=== PATIENT | female | born 1955 | race Asian ===

== ENCOUNTER 2016-06-17 16:21 | Emergency (ER) | payer OTHER ==
[~2016-06-17] VITALS: Ht 152.4 cm; Wt 55.2 kg
[2016-06-17 16:22] VITALS: BP 119/68
== END 2016-06-17 17:31 | disposition home or self-care (01) ==
LOC: ED 17:30
DX: L50.0 Allergic urticaria (principal); T78.40XA Allergy, unspecified, initial encounter; X58.XXXA Exposure to other specified factors, initial encounter
CPT/HCPCS: 99283; Q0177

== ENCOUNTER 2016-08-26 02:52 | Emergency (ER) | payer OTHER ==
[~2016-08-26] VITALS: Ht 152.4 cm; Wt 54.2 kg
[2016-08-26 02:56] VITALS: BP 100/66
[2016-08-26] MEDS ORDERED: AZIT250T PO (03:01)
[2016-08-26] MEDS ORDERED: DEXAMETHASONE 4 MG/ML, 1ML ONE (03:51)
[2016-08-26] MEDS ORDERED: DEXAMETHASONE 4 MG/ML, 1ML PO ONE (04:00)
== END 2016-08-26 04:39 | disposition home or self-care (01) ==
LOC: ED 04:33
DX: J15.9 Unspecified bacterial pneumonia (principal); J02.8 Acute pharyngitis due to other specified organisms; H10.023 Other mucopurulent conjunctivitis, bilateral
CPT/HCPCS: 71020; 99284; J1100

== ENCOUNTER 2019-05-04 12:34 | Emergency (ER) | payer MEDICAID, OTHER ==
[~2019-05-04] VITALS: Ht 152.4 cm; Wt 47.4 kg
[~2019-05-04 12:34] MED LIST: AZIT250T PO
[2019-05-04 13:07] LABS: BASOPHILS # (AUTO) 0.03 x10^3/uL (0-0.1); BASOPHILS % (AUTO) 0 % (0-1); EOSINOPHILS # (AUTO) 0.17 x10^3/uL (0-0.4); EOSINOPHILS % (AUTO) 2 % (1-7); LYMPHOCYTES % (AUTO) 13 % (22-44); MD NO; MEAN CORPUSCULAR HEMOGLOBIN 32.4 pg (27.0-34.8); MEAN CORPUSCULAR HGB CONC 33.6 g/dL (32.4-35.8); MEAN CORPUSCULAR VOLUME 96.5 fL (80-100); MEAN PLATELET VOLUME 5.7 fL (7.4-10.4); MONOCYTES # (AUTO) 0.47 x10^3/uL (0.2-0.8); MONOCYTES % (AUTO) 5 % (2-9); NEUTROPHILS # (AUTO) 7.78 x10^3/uL (1.8-6.8); NEUTROPHILS % (AUTO) 81 % (42-75); PLATELET COUNT 263 x10^3/uL (130-400); RED BLOOD COUNT 3.39 x10^6/uL (3.82-5.3); RED CELL DISTRIBUTION WIDTH 13.2 % (9.6-15.2)
[2019-05-04 13:19] LABS: ALBUMIN 3.4 g/dL (3.4-5.0); ANION GAP 6 mmol/L (5-15); CALCIUM 8.8 mg/dL (8.5-10.1); CHLORIDE 108 mmol/L (98-107)
[2019-05-04 13:25] LABS: ALANINE AMINOTRANSFERASE 15 U/L (12-78); BILIRUBIN,TOTAL 0.3 mg/dL (0.2-1.0); CREATININE 2.38 mg/dL (0.55-1.02); TOTAL PROTEIN 7.9 g/dL (6.4-8.2); TROPONIN I < 0.015 ng/mL (0.000-0.045)
[2019-05-04 13:26] LABS: ALKALINE PHOSPHATASE 66 U/L (45-117)
[2019-05-04 15:36] VITALS: BP 128/78
--- NOTE | 2019-05-04 18:44 | NUR ---
called pt to room from lobby, not in lobby
--- NOTE | 2019-05-04 19:01 | NUR ---
not in lobby
--- NOTE | 2019-05-04 19:13 | NUR ---
not in lobby
== END 2019-05-04 19:15 | disposition left against medical advice (07) ==
LOC: ED 13:34
DX: R06.00 Dyspnea, unspecified (principal); R05 Cough; R50.9 Fever, unspecified
CPT/HCPCS: 36415; 71046; 80053; 84484; 85025; 93005; 99285